=== PATIENT | male | born 1990 | race Caucasian/White ===

== ENCOUNTER 2023-05-09 08:03 | Day surgery (SDC) | payer OTHER, MEDICAID, SELFPAY ==
[2023-05-09] VITALS (8 sets, daily range): BP systolic 137–158; BP diastolic 80–99; PULSE 74–88; RESP 16–20; TEMP 36.2–37.2; O2SAT 95–99; BMI 28.2
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
--- NOTE | 2023-05-09 08:25 | PC.NURSE ---
patient a&ox3, denies pain/discomfort at this time vss, rt eye was cleaned and wet to dry dressing put on area until provider evaluates, call lambert within reach, will continue to monitor..
--- NOTE | 2023-05-09 08:59 | PC.NURSE ---
pt to CT scan
[2023-05-09] MEDS: Fluorescein Sodium STRIP 1 STRIP EYE-RIGHT (09:27)
[2023-05-09] MEDS: Diphth,Pertus(ACell),Tet Adult 0.5 ML SYRINGE IM (09:27)
[2023-05-09] MEDS: Tetracaine HCl/PF 0.5% Oph Sol 4 ML DROPS 1 DROP EYE-RIGHT (09:27)
[2023-05-09 09:28] LABS: MANUAL DIFF FLAG NO
[2023-05-09 09:29] LABS: Basophils Absolute Auto 0.1 X10*3/uL (0.0-0.2); Basophils Percent Auto 0.8 % (0-2); Eosinophils Absolute Auto 0.3 X10*3/uL (0.0-0.4); Eosinophils Percent Auto 3.2 % (0-4); Hematocrit 48.9 % (42.0-52.0); Hemoglobin 16.8 g/dl (14.0-18.0); Imm Gran Abs Auto 0.07 X10*3/uL (0.00-0.03); Imm Gran Pct Auto 0.8 % (0.0-0.4); Lymphocytes Absolute Auto 1.9 X10*3/uL (1.2-4.9); Lymphocytes Percent Auto 20.2 % (20-40); Mean Corpuscular HGB Conc 34.4 g/dl (31.0-36.0); Mean Corpuscular Hemoglobin 29.4 pg (27.0-33.0); Mean Corpuscular Volume 85.5 fL (80.0-98.0); Mean Platelet Volume 10.5 fL (9.4-12.4); Monocytes Absolute Auto 0.7 X10*3/uL (0.1-1.2); Monocytes Percent Auto 7.6 % (2-11); Neutrophils Absolute Auto 6.2 x10*3/uL (2.0-8.3); Neutrophils Percent Auto 67.4 % (45-73); Platelet Count 243 X10*3/uL (160-400); Red Blood Count 5.72 X10*6/uL (4.60-5.80); Red Cell Distribution Width 12.5 % (11.0-16.0); White Blood Count 9.2 X10*3/uL (4.8-10.8)
--- NOTE | 2023-05-09 09:29 | PC.NURSE ---
eye med to be administered by provider, pt medicated per order
[2023-05-09 09:36] LABS: INTERNATIONAL NORM RATIO 0.9 (0.9-1.1); Prothrombin Time 10.7 SEC (10.0-13.1)
[2023-05-09 09:47] LABS: Anion Gap 12 (12-20); Blood Urea Nitrogen 16 mg/dL (9-16); Calcium 9.7 mg/dL (8.4-10.2); Carbon Dioxide 24 mmol/L (22-29); Chloride 107 mmol/L (96-108); Creatinine Clr Calc Pharmacy 153.3; Estimated Glomerular Filt Rate > 60; Glucose Random 103 mg/dL (60-115); Potassium 4.1 mmol/L (3.3-5.1); Sodium 139 mmol/L (135-145)
[2023-05-09 10:53] LABS: Amphetamine Screen Urine Not Detected (Not Detect); Barbiturates, Urine Not Detected (Not Detect); Benzodiazepines Screen Urine Not Detected (Not Detect); Cannabinoid Screen Urine Not Detected (Not Detect); Cocaine Screen Urine Not Detected (Not Detect); Fentanyl, urine Not Detected (Not Detect); Opiate Screen Urine Not Detected (Not Detect); Phencyclidine Screen Urine Not Detected (Not Detect)
[2023-05-09] MEDS: Ampicillin Sodium/Sulbactam Na 3 GM in 0.9 % Sodium Chloride 100 ML IV (11:04)
--- NOTE | 2023-05-09 11:19 | PC.NURSE ---
patient alert and oriented, antibiotics administer per provider order, vital signs stable, call lambert placed within reach.
--- NOTE | 2023-05-09 11:47 | PC.NURSE ---
pt going to the OR, OR staff has picked up the patient at 114
--- NOTE | 2023-05-09 11:54 | P.CONAN_ITS ---
[facility] Active Problems Active Problems: All Active Problems (Updated 05/09/23 @ 11:43 by JULIANO Pascal) Open fracture of frontal sinus (Acute) Laceration of face, complex (Acute) Surgical History Surgical History S/P nasal surgery Social History Social History Alcohol intake: current Alcohol intake frequency: holidays/special occasions only Smoked in Last 30 Days: Yes Use of substances other than those prescribed or required for medical reasons: No Advance Directives: No Advance Directives Information Provided: No Meds Allergies Allergy/AdvReac Type Severity Reaction Status Date / Time No Known Allergies Allergy Verified 05/09/23 08:19 Exam Exam Date and Time: May 09, 2023 1154 Height,Weight and Vital Signs: Height 6 ft 2 in Weight 99.5 kg Last Vital Signs Temp 98.5 F 05/09/23 11:03 Pulse 74 05/09/23 11:03 Resp 16 05/09/23 11:03 BP 137/83 05/09/23 11:03 Pulse Ox 97 05/09/23 11:03 O2 Del Method Room Air 05/09/23 11:03 Pertinent Lab Results Pertinent Lab Results: Laboratory Tests 05/09/23 05/09/23 05/09/23 09:24 09:24 09:24 WBC 9.2 RBC 5.72 Hgb 16.8 Hct 48.9 MCV 85.5 MCH 29.4 MCHC 34.4 RDW 12.5 Plt Count 243 MPV 10.5 Immature Gran % (Auto) 0.8 H Neut % (Auto) 67.4 Lymph % (Auto) 20.2 [place] % (Auto) 7.6 Eos % (Auto) 3.2 Baso % (Auto) 0.8 Lymph # (Auto) 1.9 [place] # (Auto) 0.7 Eos # (Auto) 0.3 Baso # (Auto) 0.1 Abs Immat Gran (auto) 0.07 H Absolute Neuts (auto) 6.2 Absolute Nucleated RBC 0.000 Nucleated RBC % (auto) 0.0 PT 10.7 INR 0.9 Sodium 139 Potassium 4.1 Chloride 107 Carbon Dioxide 24 Anion Gap 12 BUN 16 Creatinine 0.88 Estim Creat Clear Calc 153.3 Estimated GFR > 60 Random Glucose 103 Calcium 9.7 Urine Opiates Screen Urine Fentanyl Screen Ur Barbiturates Screen Ur Phencyclidine Scrn Ur Amphetamines Screen U Benzodiazepines Scrn Urine Cocaine Screen U Marijuana (THC) Screen 05/09/23 10:35 WBC RBC Hgb Hct MCV MCH MCHC RDW Plt Count MPV Immature Gran % (Auto) Neut % (Auto) Lymph % (Auto) [place] % (Auto) Eos % (Auto) Baso % (Auto) Lymph # (Auto) [place] # (Auto) Eos # (Auto) Baso # (Auto) Abs Immat Gran (auto) Absolute Neuts (auto) Absolute Nucleated RBC Nucleated RBC % (auto) PT INR Sodium Potassium Chloride Carbon Dioxide Anion Gap BUN Creatinine Estim Creat Clear Calc Estimated GFR Random Glucose Calcium Urine Opiates Screen Not Detected Urine Fentanyl Screen Not Detected Ur Barbiturates Screen Not Detected Ur Phencyclidine Scrn Not Detected Ur Amphetamines Screen Not Detected U Benzodiazepines Scrn Not Detected Urine Cocaine Screen Not Detected U Marijuana (THC) Screen Not Detected
--- NOTE | 2023-05-09 12:06 | HO.ANESPROP2 ---
HPI - Anesthesia Eval Consult details Narrative: right eye laceration .pt drank red bull at 8 AM drank 6 ounces . npo for solids more than 10 hrs PMFSH Active Problems Active Problems: All Active Problems (Updated 05/09/23 @ 11:43 by JULIANO Pascal) Open fracture of frontal sinus (Acute) Laceration of face, complex (Acute) Family History Family history of problems with anesthesia: No Surgical History Surgical History S/P nasal surgery History of Problems with Anesthesia: No Social History Social History Alcohol intake: current Alcohol intake frequency: holidays/special occasions only Smoked in Last 30 Days: Yes Use of substances other than those prescribed or required for medical reasons: No Advance Directives: No Advance Directives Information Provided: No Meds Allergies Allergy/AdvReac Type Severity Reaction Status Date / Time No Known Allergies Allergy Verified 05/09/23 08:19 Exam Exam Date and Time: May 09, 2023 1206 Height,Weight and Vital Signs: Height 6 ft 2 in Weight 99.5 kg Last Vital Signs Temp 98.5 F 05/09/23 11:03 Pulse 74 05/09/23 11:03 Resp 16 05/09/23 11:03 BP 137/83 05/09/23 11:03 Pulse Ox 97 05/09/23 11:03 O2 Del Method Room Air 05/09/23 11:03 Pertinent Lab Results Pertinent Lab Results: Laboratory Tests 05/09/23 05/09/23 05/09/23 09:24 09:24 09:24 WBC 9.2 RBC 5.72 Hgb 16.8 Hct 48.9 MCV 85.5 MCH 29.4 MCHC 34.4 RDW 12.5 Plt Count 243 MPV 10.5 Immature Gran % (Auto) 0.8 H Neut % (Auto) 67.4 Lymph % (Auto) 20.2 [place] % (Auto) 7.6 Eos % (Auto) 3.2 Baso % (Auto) 0.8 Lymph # (Auto) 1.9 [place] # (Auto) 0.7 Eos # (Auto) 0.3 Baso # (Auto) 0.1 Abs Immat Gran (auto) 0.07 H Absolute Neuts (auto) 6.2 Absolute Nucleated RBC 0.000 Nucleated RBC % (auto) 0.0 PT 10.7 INR 0.9 Sodium 139 Potassium 4.1 Chloride 107 Carbon Dioxide 24 Anion Gap 12 BUN 16 Creatinine 0.88 Estim Creat Clear Calc 153.3 Estimated GFR > 60 Random Glucose 103 Calcium 9.7 Urine Opiates Screen Urine Fentanyl Screen Ur Barbiturates Screen Ur Phencyclidine Scrn Ur Amphetamines Screen U Benzodiazepines Scrn Urine Cocaine Screen U Marijuana (THC) Screen 05/09/23 10:35 WBC RBC Hgb Hct MCV MCH MCHC RDW Plt Count MPV Immature Gran % (Auto) Neut % (Auto) Lymph % (Auto) [place] % (Auto) Eos % (Auto) Baso % (Auto) Lymph # (Auto) [place] # (Auto) Eos # (Auto) Baso # (Auto) Abs Immat Gran (auto) Absolute Neuts (auto) Absolute Nucleated RBC Nucleated RBC % (auto) PT INR Sodium Potassium Chloride Carbon Dioxide Anion Gap BUN Creatinine Estim Creat Clear Calc Estimated GFR Random Glucose Calcium Urine Opiates Screen Not Detected Urine Fentanyl Screen Not Detected Ur Barbiturates Screen Not Detected Ur Phencyclidine Scrn Not Detected Ur Amphetamines Screen Not Detected U Benzodiazepines Scrn Not Detected Urine Cocaine Screen Not Detected U Marijuana (THC) Screen Not Detected Airway Mallampati Class: II TM Dist: >3cm Neck ROM: Full Heart: rrr Lungs: cta Assessment and Plan Assessment Anesthesia Assessment: Anesthesia Plan Discussed Final Anesthetic Review Family History of Problems with Anesthesia: No History of Problems with Anesthesia: No NPO: Yes ASA Class: II Final Preanesthetic Review: No Changes in Pt Med Stat, Meds/Allgs Chart Reviewed, Consent Obtained/Reviewed and Anes Risks/Benef Reviewed Patient Risk: Low Procedure Risk: Low Anesthetic Plan Anesthetic Plan: GA Disposition: Standard PACU
--- NOTE | 2023-05-09 13:43 | HO.POSTANES ---
Post Anesthesia Evaluation Post Anesthesia Evaluation Date of Service: 05/09/23 Vital Signs: Vital Signs Temp Pulse Resp BP Pulse Ox O2 Del Method O2 Flow Rate 05/09/23 13:39 81 16 158/89 H 99 Room Air 05/09/23 13:34 75 18 154/98 H 99 Simple Mask 6 05/09/23 13:29 97.2 F 85 20 157/99 H 97 Simple Mask 6 05/09/23 11:03 98.5 F 74 16 137/83 97 Room Air 05/09/23 08:19 98.5 F 77 18 138/80 96 Room Air Anesthesia: General LMA Mental Status: Awake Pain Control: Satisfactory Nausea/Vomiting: None Hydration: Adequate Anesthesia-Related Issues: No Anes. Related Issues
[2023-05-09] MEDS: Ketorolac Tromethamine 30 MG/ML VIAL IVPUSH (13:48)
[2023-05-09] MEDS: oxyCODONE HCl Immed Release 5 MG TABLET PO (13:49)
--- NOTE | 2023-05-09 23:40 | OP_ITS ---
DATE OF SERVICE: 05/09/2023 SURGEON: Marcio Alegria MD PREOPERATIVE DIAGNOSIS: POSTOPERATIVE DIAGNOSIS: Complex stellate lid laceration of the right upper lid and brow. PROCEDURE PERFORMED: Closure of wound. ESTIMATED BLOOD LOSS: COMPLICATIONS: ANESTHESIA: General. ASSISTANTS: SPECIMENS: INDICATION FOR SURGERY: Complex stellate lid laceration of the right upper lid and brow. DESCRIPTION OF PROCEDURE: After obtaining informed consent, the patient was brought to the operating room from the ER and placed in the supine position. After being placed under general anesthesia, the right eye was prepped and draped in usual sterile fashion. Attention was directed to the superior lid area, where deep sutures were placed of 6-0 Vicryl. This was followed by 6-0 being utilized to close the stellate lid lacerations. Erythromycin was placed on the wound at the completion of the case. The patient tolerated the procedure well and will be seen in followup. MD MIGUEL Gaspar/MODL / [id number]
== END 2023-05-09 14:44 | disposition home or self-care (01) ==
LOC: HO.ED 11:43 → HO.SSS 13:46
PROVIDERS: Ophthalmology; Emergency Provider Emergency Medicine; Visit Provider Physician Assistant
PROC: (CPT 13151; principal; 2023-05-09 12:00)
DX: S02.19XB Other fracture of base of skull, initial encounter for open fracture (principal); S01.111A Laceration without foreign body of right eyelid and periocular area, initial encounter; V47.5XXA Car driver injured in collision with fixed or stationary object in traffic accident, initial encounter; R51.9 Headache, unspecified; Z97.3 Presence of spectacles and contact lenses; Z98.890 Other specified postprocedural states; F17.210 Nicotine dependence, cigarettes, uncomplicated; W22.11XA Striking against or struck by driver side automobile airbag, initial encounter; Y92.410 Unspecified street and highway as the place of occurrence of the external cause; Y99.8 Other external cause status
CPT/HCPCS: 13151; 36415; 70450; 70486; 72125; 80048; 80307; 85025; 85610; 90471; 90715; 96365; 96375; 99284; 99285; J0295; J1100; J1170; J1885; J2250; J2405; J3010